=== PATIENT | male | born 2000 | race Two or more races ===

== ENCOUNTER 2022-03-14 13:00 | Emergency (ER) | payer MEDICAID, OTHER ==
[~2022-03-14] VITALS: Ht 172.7 cm; Wt 81.6 kg
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
[2022-03-14] MEDS ORDERED: KETOROLAC TROMETHAMINE INJ 30 MG/ML VIAL IM ONE (14:30)
[2022-03-14] MEDS ORDERED: CYCLOBENZAPRINE 10 MG TABLET PO ONE (14:30)
[2022-03-14] MEDS ORDERED: CYCLOBENZAPRINE 10 MG TABLET ONE (15:04)
[2022-03-14] MEDS ORDERED: KETOROLAC TROMETHAMINE INJ 30 MG/ML VIAL ONE (15:04)
[2022-03-14] MEDS ORDERED: CYCL5TAB PO (15:32)
[2022-03-14] MEDS ORDERED: ACETAMINOPHEN ES 500 MG TABLET ONE (15:47)
[2022-03-14 15:54] VITALS: BP 128/81
--- NOTE | 2022-03-14 15:54 | NUR ---
Patient discharged to home in stable condition. Written and verbal after care instructions given. Patient verbalizes understanding of instruction.
[2022-03-14] MEDS ORDERED: ACETAMINOPHEN ES 500 MG TABLET PO ONE (16:00)
== END 2022-03-14 15:54 | disposition home or self-care (01) ==
LOC: ER 13:08 → EDBD 13:08 → ER 15:54
DX: S13.4XXA Sprain of ligaments of cervical spine, initial encounter (principal); Z88.8 Allergy status to other drugs, medicaments and biological substances; Z79.899 Other long term (current) drug therapy; V89.2XXA Person injured in unspecified motor-vehicle accident, traffic, initial encounter; Y93.89 Activity, other specified; Y92.411 Interstate highway as the place of occurrence of the external cause; Y99.8 Other external cause status
CPT/HCPCS: 70450-TC; 72125-TC; J1885